=== PATIENT | male | born 1960 | race Caucasian/White ===

== ENCOUNTER 2019-07-07 10:44 | Emergency (ER) | payer OTHER ==
[2019-07-07] MEDS ORDERED: IV NORMAL SALINE 1,000ML 1,000 ML IV ONE (11:00)
[2019-07-07 11:20] VITALS: BP 127/82
[2019-07-07 11:20] LABS: BASO % 0 % (0-3); EOS % 0 % (0-3); HEMOGLOBIN 15.9 g/dL (13.0-17.5); LYMPH # 0.3 x10^3/uL (1.0-4.8); LYMPH % 2 % (24-48); MEAN CORPUSCULAR HEMOGLOBIN 29 pg (25-35); MEAN CORPUSCULAR HGB CONC 34 g/dL (31-37); MEAN CORPUSCULAR VOLUME 85 fL (79-100); MONO # 0.3 x10^3/uL (0.0-1.1); MONO % 2 % (0-9); NEUT # 17.4 x10^3uL (1.8-7.7); NEUT % 96 % (31-73); PLATELET COUNT 221 x10^3/uL (140-400); RED BLOOD COUNT 5.52 x10^6/uL (4.30-5.70); RED CELL DISTRIBUTION WIDTH 13.3 % (11.5-14.5); WHITE BLOOD COUNT 18.1 x10^3/uL (4.0-11.0)
[2019-07-07 11:27] LABS: CALCIUM 9.4 mg/dL (8.5-10.1); CREATININE 1.3 mg/dL (0.7-1.3); GFR 56.5; POTASSIUM 4.3 mmol/L (3.5-5.1)
[2019-07-07] MEDS ORDERED: DICYCLOMINE 20 MG/2 ML AMPUL. IM ONE (11:30)
[2019-07-07] MEDS ORDERED: ONDANSETRON PF 4 MG/2 ML VIAL. IM ONE (11:30)
[2019-07-07 11:33] LABS: ALBUMIN 4.4 g/dL (3.4-5.0); ALBUMIN/GLOBULIN RATIO 1.2 (1.0-1.7); TOTAL BILIRUBIN 0.6 mg/dL (0.2-1.0); TOTAL PROTEIN 8.1 g/dL (6.4-8.2)
[2019-07-07 11:44] LABS: % BANDS 11 % (0-9); % BASOS 0 % (0-3); % EOS 0 % (0-5); % LYMPHS 2 % (24-48); % MONOS 4 % (0-10); % SEGS 83 % (35-66); PLATELET CLUMP PRESENT
[2019-07-07 11:45] LABS: PLT ESTIMATE ADEQUATE (ADEQUATE); STOMATOCYTES OCC
[2019-07-07 11:46] LABS: TOXIC VACUOLATION PRESENT
--- NOTE | 2019-07-07 11:52 | RAD ---
Examination: CT of the abdomen pelvis without contrast HISTORY: History of abdominal pain, nausea COMPARISON: None available TECHNIQUE: Axial CT images of the abdomen pelvis were performed without contrast. Coronal and sagittal reformats performed Exposure: One or more of the following individualized dose reduction techniques were utilized for this examination: 1. Automated exposure control 2. Adjustment of the mA and/or kV according to patient size 3. Use of iterative reconstruction technique FINDINGS: 4 mm nodule identified in the left lower lobe of the lung abutting the pleura. No evidence of free air identified in the abdomen. The evaluation of the solid organs is limited due to lack of IV contrast. The evaluation of bowel is limited due to lack of oral contrast. The visualized noncontrasted liver, spleen, adrenals grossly appears unremarkable. The gallbladder is mildly distended. The visualized pancreas grossly appears unremarkable. The stomach is mildly distended with fluid. Multiple fluid distended and dilated small bowel loops identified in the mid and lower abdomen. Liquid stool identified in the colon. There is mild enhancement of the wall of the distal small bowel wall. Few sigmoid colon diverticulosis identified. No evidence of intrarenal collecting system calculi or hydronephrosis. The urinary bladder is mildly distended. Mild aortic atherosclerosis. Focal mixed sclerotic density identified in the right medial superior pubic ramus could be old injury or focal Paget's disease. IMPRESSION: 1. Multiple fluid distended and dilated small bowel loops identified in the mid and lower abdomen could be small bowel obstruction probably partial small bowel obstruction or ileus. Mild fat stranding identified about the distal ileum probably enteritis. 2. 4 mm nodule identified in the left lower lobe of the lung abutting the pleura. Follow-up per Fleischner Society guidelines is recommended follow-up CT in 6-12 months. Electronically signed by: Jayme Martin MD (07/07/2019 11:49 AM) [facility]
--- NOTE | 2019-07-07 12:16 | PHYS DOC ---
Past History Past Medical History: GERD, Other Additional Past Medical Histor: diverticulosis Past Surgical History: No Surgical History Smoking: Non-smoker Alcohol Use: None Drug Use: None Adult General Chief Complaint Chief Complaint: NAUSEA/VOMITING/DIARRHEA HPI HPI Patient is a 58-year-old male presents with abdominal pain, cramping, along with nausea and vomiting. Patient initially had an episode of this 5 days ago. He had 4 episodes of diarrhea and felt weak. This got better and she went to work that day. It started up again this morning at approximately 4 AM. No blood in the emesis. Diarrhea today. No blood in the stool. No recent travel. No previous surgical history. He has taken no home pain medicines. He is only on omeprazole for possible esophagitis. Nothing makes the symptoms better or worse. Symptoms are moderate in intensity.[] Review of Systems Review of Systems Constitutional: Denies fever or chills [] Eyes: Denies change in visual acuity, redness, or eye pain [] HENT: Denies nasal congestion or sore throat [] Respiratory: Denies cough or shortness of breath [] Cardiovascular: No chest pain or palpitations[] GI: See history of present illness[] : Denies dysuria or hematuria [] Musculoskeletal: Denies back pain or joint pain [] Integument: Denies rash or skin lesions [] Neurologic: Denies headache, focal weakness or sensory changes [] Endocrine: Denies polyuria or polydipsia [] All other systems were reviewed and found to be within normal limits, except as documented in this note. Current Medications Current Medications Current Medications Medications (Trade) Dose Ordered Sig/Abigail Start Time Stop Time Status Last Admin Dose Admin Dicyclomine HCl (Bentyl) 10 mg 1X ONCE 07/07/19 11:30 07/07/19 11:34 DC 07/07/19 11:29 10 MG Ondansetron HCl (Zofran) 4 mg 1X ONCE 07/07/19 11:30 07/07/19 11:31 DC 07/07/19 11:18 4 MG Sodium Chloride 1,000 ml @ 1,000 mls/hr 1X ONCE 07/07/19 11:00 07/07/19 11:59 DC 07/07/19 11:16 1,000 MLS/HR Allergies Allergies Allergies Coded Allergies Type Severity Reaction Last Updated Verified No Known Drug Allergies 07/07/19 No Physical Exam Physical Exam Constitutional: Well developed, well nourished, I'll discomfort, non-toxic appearance. [] HENT: Normocephalic, atraumatic, bilateral external ears normal, oropharynx moist, no oral exudates, nose normal. [] Eyes: PERRLA, EOMI, conjunctiva normal, no discharge. [] Neck: Normal range of motion, no tenderness, supple, no stridor. [] Cardiovascular:Heart rate regular rhythm, no murmur [] Lungs & Thorax: Bilateral breath sounds clear to auscultation [] Abdomen: Bowel sounds normal, soft, diffuse tenderness, no rebound, no guarding, no rigidity, able to sit up and lie back without any difficulty, no masses, no pulsatile masses. [] Skin: Warm, dry, no erythema, no rash. [] Back: No tenderness, no CVA tenderness. [] Extremities: No tenderness, no cyanosis, no clubbing, ROM intact, no edema. [] Neurologic: Alert and oriented X 3, normal motor function, normal sensory function, no focal deficits noted. [] Psychologic: Affect normal, judgement normal, mood normal. [] Current Patient Data Vital Signs Vital Signs Date Time Temp Pulse Resp B/P (MAP) Pulse Ox O2 Delivery O2 Flow Rate FiO2 07/07/19 11:20 98.2 115 18 98 Room Air Lab Results Laboratory Tests Test 07/07/19 11:07 White Blood Count 18.1 x10^3/uL (4.0-11.0) H Red Blood Count 5.52 x10^6/uL (4.30-5.70) Hemoglobin 15.9 g/dL (13.0-17.5) Hematocrit 47.0 % (39.0-53.0) Mean Corpuscular Volume 85 fL (79-100) Mean Corpuscular Hemoglobin 29 pg (25-35) Mean Corpuscular Hemoglobin Concent 34 g/dL (31-37) Red Cell Distribution Width 13.3 % (11.5-14.5) Platelet Count 221 x10^3/uL (140-400) Neutrophils (%) (Auto) 96 % (31-73) H Lymphocytes (%) (Auto) 2 % (24-48) L Monocytes (%) (Auto) 2 % (0-9) Eosinophils (%) (Auto) 0 % (0-3) Basophils (%) (Auto) 0 % (0-3) Neutrophils # (Auto) 17.4 x10^3uL (1.8-7.7) H Lymphocytes # (Auto) 0.3 x10^3/uL (1.0-4.8) L Monocytes # (Auto) 0.3 x10^3/uL (0.0-1.1) Eosinophils # (Auto) 0.0 x10^3/uL (0.0-0.7) Basophils # (Auto) 0.0 x10^3/uL (0.0-0.2) Segmented Neutrophils % 83 % (35-66) H Band Neutrophils % 11 % (0-9) H Lymphocytes % 2 % (24-48) L Monocytes % 4 % (0-10) Eosinophils % 0 % (0-5) Basophils % 0 % (0-3) Toxic Vacuolation Present Platelet Estimate Adequate (ADEQUATE) Platelet Clumps, EDTA Present Stomatocytes Occ Sodium Level 137 mmol/L (136-145) Potassium Level 4.3 mmol/L (3.5-5.1) Chloride Level 101 mmol/L (98-107) Carbon Dioxide Level 30 mmol/L (21-32) Anion Gap 6 (6-14) Blood Urea Nitrogen 17 mg/dL (8-26) Creatinine 1.3 mg/dL (0.7-1.3) Estimated GFR (Cockcroft-Gault) 56.5 BUN/Creatinine Ratio 13 (6-20) Glucose Level 166 mg/dL (70-99) H Calcium Level 9.4 mg/dL (8.5-10.1) Total Bilirubin 0.6 mg/dL (0.2-1.0) Aspartate Amino Transferase (AST) 23 U/L (15-37) Alanine Aminotransferase (ALT) 36 U/L (16-63) Alkaline Phosphatase 104 U/L (46-116) Total Protein 8.1 g/dL (6.4-8.2) Albumin 4.4 g/dL (3.4-5.0) Albumin/Globulin Ratio 1.2 (1.0-1.7) Lipase 98 U/L (73-393) EKG EKG [] Radiology/Procedures Radiology/Procedures PROCEDURE: CT ABDOMEN PELVIS WO CONTRAST Examination: CT of the abdomen pelvis without contrast HISTORY: History of abdominal pain, nausea COMPARISON: None available TECHNIQUE: Axial CT images of the abdomen pelvis were performed without contrast. Coronal and sagittal reformats performed Exposure: One or more of the following individualized dose reduction techniques were utilized for this examination: 1. Automated exposure control 2. Adjustment of the mA and/or kV according to patient size 3. Use of iterative reconstruction technique FINDINGS: 4 mm nodule identified in the left lower lobe of the lung abutting the pleura. No evidence of free air identified in the abdomen. The evaluation of the solid organs is limited due to lack of IV contrast. The evaluation of bowel is limited due to lack of oral contrast. The visualized noncontrasted liver, spleen, adrenals grossly appears unremarkable. The gallbladder is mildly distended. The visualized pancreas grossly appears unremarkable. The stomach is mildly distended with fluid. Multiple fluid distended and dilated small bowel loops identified in the mid and lower abdomen. Liquid stool identified in the colon. There is mild enhancement of the wall of the distal small bowel wall. Few sigmoid colon diverticulosis identified. No evidence of intrarenal collecting system calculi or hydronephrosis. The urinary bladder is mildly distended. Mild aortic atherosclerosis. Focal mixed sclerotic density identified in the right medial superior pubic ramus could be old injury or focal Paget's disease. IMPRESSION: 1. Multiple fluid distended and dilated small bowel loops identified in the mid and lower abdomen could be small bowel obstruction probably partial small bowel obstruction or ileus. Mild fat stranding identified about the distal ileum probably enteritis. 2. 4 mm nodule identified in the left lower lobe of the lung abutting the pleura. Follow-up per Fleischner Society guidelines is recommended follow-up CT in 6-12 months.[] Course & Med Decision Making Course & Med Decision Making Pertinent Labs and Imaging studies reviewed. (See chart for details) ED course: Patient arrived, was placed in bed area did IV access was established and he was given IV fluids. He was transported to and from radiology without any complications. He was given antispasmodics which improved his discomfort. After the return of lab and imaging studies, these were discussed with the patie nt and family who voiced understanding. Consultation was made with the hospitalist service. Due to possibility of small bowel obstruction and potentially needing surgery involvement, patient is being transferred to [facility]. He was transported in improved condition. Medical decision makin-year-old male with abdominal pain and a small bowel obstruction versus partial small bowel obstruction. He is being transferred to a higher level of care.[] Dragon Disclaimer Dragon Disclaimer This electronic medical record was generated, in whole or in part, using a voice recognition dictation system. Departure Departure: Impression: Primary Impression: Small bowel obstruction Disposition: 05 TRANSFER OTHER Admitting Physician: Aaron Muniz Condition: IMPROVED Referrals: GOPAL SANTO MD (PCP) FORTINO JIN DO Jul 07, 2019 12:16
--- NOTE | 2019-07-09 14:11 | DS ---
DATE OF DISCHARGE: 07/07/2019 HOSPITAL COURSE: The patient is a 58-year-old male patient, who was admitted with recurrent bouts of nausea, vomiting, abdominal pain and diarrhea. Initially, there was a questionable paralytic ileus versus partial bowel obstruction; however, the patient did very well. Acute abdomen series showed no acute pulmonary finding and nonspecific bowel gas pattern without evidence of obstruction. He was started on a clear liquid diet and his diet was advanced and he did very well, has no further episodes of nausea, vomiting, diarrhea or constipation. No abdominal pain. A decision was made to discharge him home to continue treatment with antibiotic as an outpatient. PHYSICAL EXAMINATION: GENERAL: When I saw him this afternoon, he looked well and was clearly in no apparent respiratory distress. No pallor, jaundice, cyanosis or thyromegaly. No jugular venous distention. No limb edema. VITAL SIGNS: Heart rate was 64, blood pressure was 125/80, temperature was 98.6, respiratory rate was 18 and oxygen saturation was 97% on room air. HEAD, EYES, EARS, NOSE AND THROAT: Normocephalic, atraumatic. NECK: Supple. HEART: Showed normal first and second heart sounds. No gallop, rub or murmur. CHEST: Clear to auscultation. No crepitation or rhonchi. ABDOMEN: Distended, soft, nontender. No guarding or rigidity. No organomegaly. All hernial orifice intact. Bowel sounds normal. NEUROLOGIC: He was awake, alert, responding appropriately. All cranial nerves intact. EXTREMITIES: He moves extremities without difficulty, ambulates without assistance or assistive devices. LABORATORY DATA: This morning showed a white cell count of 3500, hemoglobin 13, hematocrit 39, MCV 88 and platelet count of 173,000. His chemistry showed a serum sodium 143, potassium 3.5, chloride 107, bicarbonate 30, anion gap of 6, BUN 12, creatinine 1.3, estimated GFR was 56 mL per minute. His glucose 108, calcium was 8.6. Total bilirubin, AST, ALT, alkaline phosphatase were normal. Total protein was 6.3, albumin 3.2. DISCHARGE MEDICATIONS: He was discharged home to continue on ciprofloxacin 500 mg twice a day for 5 more days and Flagyl 500 mg 3 times a day for 5 more days. He was warned about drinking alcohol with Flagyl. Should continue also on ascorbic acid 100 mg daily, chondroitin sulfate or Optiflex 1 tablet once a day, multivitamin 1 tablet once a day, omeprazole 40 mg once a day, sildenafil or Viagra 50 mg as needed. FINAL DISCHARGE DIAGNOSES: 1. Acute gastroenteritis. 2. Gastroesophageal reflux disease. 3. Erectile dysfunction. HOLA CUMMINGS MD DR: DEANNA/carlota JOB#: [id number] / [id number]
== END 2019-07-07 13:12 | disposition short-term general hospital (02) ==
LOC: ER 10:44
DX: K56.699 Other intestinal obstruction unspecified as to partial versus complete obstruction (principal); K21.9 Gastro-esophageal reflux disease without esophagitis
CPT/HCPCS: 36415; 74176; 80053; 83690; 85007; 85025; 96360; 96372; 99285; J0500; J2405; J7030